=== PATIENT | female | born 1955 | race Caucasian/White ===

== ENCOUNTER 2019-03-17 15:54 | Inpatient (IN) ==
[2019-03-17] MEDS ORDERED: NS 1,000 ML IV ONE ×2 (16:09→17:10)
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
--- NOTE | 2019-03-17 16:21 | Diag Imaging Result Doc PS360 ---
EXAM: CHEST-1 VIEW 03/17/2019 HISTORY: chest pain TECHNIQUE: AP portable at 1611 COMMENT: There is no evidence of acute cardiac or pulmonary disease. IMPRESSION: No evidence of acute disease. Electronically signed by Cuate De Leon 03/17/2019 4:19 PM
[2019-03-17 17:07] LABS: ALLEN TEST NO; BE -22.1 mmoll (-3.0-3.0); BLOOD TYPE ARTERIAL; METHB 0.7 % (0.0-1.5); O2HB 97.2 % (95.0-99.0); PO2(98.6) 132 mmHg (60-100); SAMPLE BLOOD; SAO2 99.3 % (95.0-100.0)
[2019-03-17 17:09] LABS: PCO2(98.6) 9 mmHg (35-45); pH(98.6) 7.17 (7.35-7.45)
[2019-03-17 17:10] LABS: HCO3-(ACT) 7.7 mmoll (20.0-26.0); MODALITY ROOM AIR
[2019-03-17] MEDS ORDERED: HUMULIN R IV ONE (17:10)
[2019-03-17] MEDS ORDERED: HUMULIN R 100 UNIT in NS 100 ML IV SCH ×3 (17:15→23:45)
[2019-03-17 18:31] LABS: BASO# 0.03 X1000 (0.0-0.2); BASO% 0.2 % (0.0-0.8); HEMATOCRIT 46.6 % (37.0-47.0); HEMOGLOBIN 16.1 g/dL (12.0-16.0); IMM GRAN# 0.08 X1000 (0.0-0.04); IMM GRAN% 0.5 % (0.0-0.5); LYMPH# 2.04 X1000 (1.2-3.4); LYMPH% 13.4 % (20.5-51.1); MCHC 34.5 g/dL (33-37); MCV 86.8 FL (81-99); MONO# 0.58 X1000 (0.11-0.59); MONO% 3.8 % (1.7-9.3); MPV 9.5 FL (7.4-10.4); NEUT% 82.1 % (42.2-75.2); PLT 437 X1000 (130-400); RBC 5.37 XMIL (4.2-5.4); RDW 13.7 % (11.5-14.5); WBC 15.23 X1000 (4.8-10.8)
[2019-03-17 19:00] LABS: ESTIMATED GFR > 60
[2019-03-17 19:04] LABS: CHLORIDE 98 mmol/L (98-107); POTASSIUM 4.6 mmol/L (3.5-5.1); SODIUM 134 mmol/L (136-145); TCO2 6 mmol/L (25-35)
[2019-03-17 19:05] LABS: AGAP 30; ALB/GLOB RATIO 1.6; ALBUMIN 4.7 g/dL (3.5-5.0); ALKALINE PHOSPHATASE 117 U/L (32-104); BUN 28 mg/dL (8-22); COSMO 281; CREATININE 0.9 mg/dL (0.5-0.9); GLUCOSE 226 mg/dL (70-104); GOT 15 U/L (10-30); GPT 11 U/L (10-36); MAGNESIUM 2.2 mg/dL (1.5-2.7); PHOSPHORUS 4.6 mg/dL (2.7-4.5); TOTAL BILIRUBIN 0.45 mg/dL (0.20-1.00); TOTAL PROTEIN 7.7 g/dL (6.3-8.3)
[2019-03-17] MEDS ORDERED: D50W SYRINGE IV PRN ×2 (20:50→23:53)
[2019-03-17] MEDS ORDERED: ZOFRAN IV PRN (20:50)
--- NOTE | 2019-03-17 21:07 | HISTORY AND PHYSICAL ---
CHIEF COMPLAINT: Weakness, nausea, vomiting, and back pain. HISTORY OF PRESENT ILLNESS: Mrs. Garcia is a 64-year-old white female with long-standing type 2 diabetes mellitus, usually treated with metformin and Trulicity. She was in my office one week ago and her recent laboratory from late February documented a fasting blood sugar of 348. She had previously been prescribed Invokana but never filled it. Apparently, her insurance does not cover it. She did say that she got a few tablets from the pharmacy and took one yesterday. For several days she has not felt well. Yesterday she complained of shoulder and upper back pain. Today she complained of lower back pain and thigh pain. She vomited several times yesterday and today but denies abdominal pain. She is quite thirsty. She presented to my office early this afternoon and appeared very ashen and dehydrated. She was sent by EMS to the emergency room, arriving approximately 4:00. Apparently they were quite busy and the only laboratory available initially was a fingerstick blood sugar of 185 and a blood gas with pH of 7.17, pCO2 9, pO2 132, indicating metabolic acidosis. She has now received intravenous fluids and just recently had her intravenous insulin started. She states her vomitus has been just clear water like fluid without blood or coffee grounds. PAST MEDICAL HISTORY: Remarkable for type 2 diabetes mellitus, hypertension, and hypercholesterolemia. PAST SURGICAL HISTORY: She had an open cholecystectomy in 1987. In 2009 she had a radical hysterectomy for stage 1 cervical cancer which was followed by some radiation therapy. ALLERGIES: She has no known drug allergies. HOME MEDICATIONS: Crestor 20 mg at bedtime, B complex multivitamin one daily, Trulicity 0.75 mg once weekly, vitamin D3 2000 units daily, aspirin 81 mg daily, gabapentin 300 mg one to two at bedtime for neuropathy, irbesartan 150 mg daily, metformin 500 mg two tablets twice a day. REVIEW OF SYSTEMS: General: No fever, chills, night sweats or weight loss. HEENT: Vision and hearing are adequate without recent changes. Respiratory: She denies any cough or sputum production or chest congestion. She has felt air hunger for pretty much all of today. Cardiovascular: No history of angina or ischemic heart disease. No history of congestive heart failure or valvular heart disease. No recent palpitations, orthopnea, PND, or pedal edema. Gastrointestinal: Appetite has been diminished for several days due to nausea. She denies any diarrhea, melena, or constipation. Genitourinary: No dysuria, increased frequency of urination, or hematuria. Neurologic: Occasional burning pains in her feet at night. No history of strokes or seizures. Skin: No rash or itching. PHYSICAL EXAMINATION: VITAL SIGNS: Pending. See nurses' notes. GENERAL APPEARANCE: Pale ill appearing white female who is alert, cooperative, and talkative. HEENT: Pupils are equal, round, and reactive to light. Extraocular movements are intact. Oropharynx is benign with slightly dry mucous membranes. NECK: Supple with no adenopathy, JVD or bruits. LUNGS: Clear to auscultation bilaterally. CARDIAC: Regular rate and rhythm. No murmurs or gallops. ABDOMEN: Soft. Nontender with active bowel sounds. No masses are palpable. Multiple scars are apparent, particularly right upper quadrant, well healed cholecystectomy scar. GENERAL ORTHOPEDIC EXAM: Unremarkable. There is no edema. SKIN: Turgor is slightly reduced. There is no rash noted. DATABASE: Sodium 134, potassium 4.6, CO2 6, calcium 12, BUN 28, creatinine 0.9, glucose 226, magnesium 2.2, phosphorus 4.6. White blood count 15,000. Hemoglobin 16.1. Hematocrit 46.6%. Platelet count is 437,000. ASSESSMENT: 1. Diabetic ketoacidosis with relatively low glucose, possibly related to her one or two doses of Invokana. It certainly sounds like her symptoms began before she took the Invokana, however. 2. Leukocytosis, probably stress related due to metabolic stress of ketoacidosis. 3. Hypertension, currently well controlled. TREATMENT PLAN: She has been given intravenous normal saline and intravenous regular insulin and will follow fingerstick blood sugars hourly and basic metabolic profiles q four hours. Will watch her urine output and make sure EKG is okay before transferring to ICU. cc: Placido Link MD
[2019-03-17] MEDS: NEURONTIN PO SCH (22:13)
[2019-03-17] MEDS: CRESTOR PO SCH (22:13)
[2019-03-17] MEDS: D5 NS 1,000 ML IV SCH (22:13)
[2019-03-17 22:54] LABS: URINE SOURCE VOIDED
[2019-03-17 23:03] LABS: BILIRUBIN URINE NEGATIVE (NEGATIVE); BLOOD URINE NEGATIVE (NEGATIVE); COLOR YELLOW; GLUCOSE URINE >1000 mg/dL (NEGATIVE); KETONE URINE >150 mg/dL (NEGATIVE); LEUKOCYTES URINE NEGATIVE (NEGATIVE); NITRITE URINE NEGATIVE (NEGATIVE); PH URINE 5.5; PROTEIN URINE 50 mg/dL (NEGATIVE); SP GRAVITY URINE 1.025; TURBIDITY URINE CLEAR (CLEAR); UR EPITHELIAL CELLS <10 /HPF (<10); URINE BACTERIA NEGATIVE /HPF; URINE RBC <10 /HPF (<10); URINE WBC <10 /HPF (<10); UROBILINOGEN URINE NORMAL (NORMAL)
[2019-03-17 23:12] LABS: AGAP 19; ALB/GLOB RATIO 1.3; ALBUMIN 3.6 g/dL (3.5-5.0); ALKALINE PHOSPHATASE 91 U/L (32-104); BUN 24 mg/dL (8-22); CALCIUM 9.5 mg/dL (8.8-10.2); CHLORIDE 105 mmol/L (98-107); COSMO 270; CREATININE 0.8 mg/dL (0.5-0.9); ESTIMATED GFR > 60; GLUCOSE 155 mg/dL (70-104); GOT 11 U/L (10-30); GPT 8 U/L (10-36); POTASSIUM 3.9 mmol/L (3.5-5.1); SODIUM 131 mmol/L (136-145); TCO2 7 mmol/L (25-35); TOTAL BILIRUBIN 0.34 mg/dL (0.20-1.00); TOTAL PROTEIN 6.4 g/dL (6.3-8.3)
[2019-03-18] MEDS ORDERED: MAGNESIUM SULFATE 2 GM/S.W.I. 2 GM/50 ML IVPB IV ONE (00:07)
[2019-03-18] MEDS ORDERED: SODIUM PHOSPHATE 30 MMOL in NS 250 ML IV PRN (00:08)
[2019-03-18] MEDS ORDERED: POTASSIUM CHLORIDE 20% LIQUID PO PRN (00:21)
--- NOTE | 2019-03-18 00:35 | EKG Report ---
Test Performed on : 03/17/2019 7:03:19 PM Test Reason : chest pain Blood Pressure : / mmHG Vent. Rate : 097 BPM Atrial Rate : 107 BPM P-R Int : 000 ms QRS Dur : 086 ms QT Int : 370 ms P-R-T Axes : 000 013 -44 degrees QTc Int : 469 ms Undetermined rhythm Nonspecific ST and T wave abnormality Abnormal ECG No previous ECGs available Confirmed by Maurisio Marin MD ([id number]) on 03/18/2019 1:00:22 PM
[2019-03-18] MEDS ORDERED: MAGNESIUM SULFATE 2 GM/S.W.I. 2 GM/50 ML IVPB IV PRN (00:52)
[2019-03-18] MEDS: POTASSIUM CHLORIDE 10% LIQUID PO PRN ×2 (01:00→05:10)
[2019-03-18 01:29] LABS: ESTIMATED GFR > 60
[2019-03-18 01:32] LABS: AGAP 17; BUN 22 mg/dL (8-22); CALCIUM 9.1 mg/dL (8.8-10.2); CHLORIDE 108 mmol/L (98-107); COSMO 274; CREATININE 0.7 mg/dL (0.5-0.9); GLUCOSE 173 mg/dL (70-104); MAGNESIUM 1.7 mg/dL (1.5-2.7); PHOSPHORUS 1.9 mg/dL (2.7-4.5); SODIUM 133 mmol/L (136-145); TCO2 8 mmol/L (25-35)
[2019-03-18 04:56] LABS: ESTIMATED GFR > 60
[2019-03-18 05:01] LABS: AGAP 12; BUN 20 mg/dL (8-22); CALCIUM 8.8 mg/dL (8.8-10.2); CHLORIDE 111 mmol/L (98-107); COSMO 277; CREATININE 0.7 mg/dL (0.5-0.9); GLUCOSE 182 mg/dL (70-104); MAGNESIUM 1.8 mg/dL (1.5-2.7); PHOSPHORUS 1.4 mg/dL (2.7-4.5); POTASSIUM 4.2 mmol/L (3.5-5.1); SODIUM 135 mmol/L (136-145); TCO2 12 mmol/L (25-35)
[2019-03-18] MEDS: D5 NS 1,000 ML IV SCH ×3 (05:11→13:09)
[2019-03-18] MEDS ORDERED: SODIUM PHOSPHATE 40 MEQ in NS 250 ML IV SCH (07:00)
[2019-03-18] MEDS: ASPIRIN PO SCH (09:18)
[2019-03-18 10:46] LABS: BASO# 0.02 X1000 (0.0-0.2); BASO% 0.4 % (0.0-0.8); EOS# 0.06 X1000 (0.0-0.7); EOS% 1.1 % (0.0-10.0); HEMATOCRIT 38.2 % (37.0-47.0); HEMOGLOBIN 13.1 g/dL (12.0-16.0); IMM GRAN# 0.04 X1000 (0.0-0.04); IMM GRAN% 0.7 % (0.0-0.5); LYMPH# 1.81 X1000 (1.2-3.4); LYMPH% 32.7 % (20.5-51.1); MCH 31.3 PG (27-31); MCHC 34.3 g/dL (33-37); MCV 91.2 FL (81-99); MONO# 0.54 X1000 (0.11-0.59); MONO% 9.7 % (1.7-9.3); MPV 9.3 FL (7.4-10.4); NEUT# 3.07 X1000 (1.4-6.5); NEUT% 55.4 % (42.2-75.2); PLT 254 X1000 (130-400); RBC 4.19 XMIL (4.2-5.4); WBC 5.54 X1000 (4.8-10.8)
[2019-03-18 10:47] LABS: ESTIMATED GFR > 60
[2019-03-18 10:48] LABS: AGAP 12; BUN 16 mg/dL (8-22); CALCIUM 8.4 mg/dL (8.8-10.2); CHLORIDE 115 mmol/L (98-107); COSMO 279; CREATININE 0.7 mg/dL (0.5-0.9); GLUCOSE 176 mg/dL (70-104); SODIUM 137 mmol/L (136-145); TCO2 10 mmol/L (25-35)
[2019-03-18 16:37] LABS: AGAP 10; BUN 16 mg/dL (8-22); CHLORIDE 112 mmol/L (98-107); COSMO 277; CREATININE 0.6 mg/dL (0.5-0.9); ESTIMATED GFR > 60; GLUCOSE 143 mg/dL (70-104); MAGNESIUM 1.6 mg/dL (1.5-2.7); PHOSPHORUS 1.9 mg/dL (2.7-4.5); POTASSIUM 3.1 mmol/L (3.5-5.1); SODIUM 137 mmol/L (136-145); TCO2 15 mmol/L (25-35)
[2019-03-18] MEDS ORDERED: MAGNESIUM SULFATE IV ONE (17:15)
[2019-03-18] MEDS ORDERED: NS IV ONE (17:15)
[2019-03-18] MEDS ORDERED: POTASSIUM PHOSPHATE IV ONE (17:15)
[2019-03-18] MEDS ORDERED: TRESIBA FLEXTOUCH U-100 SUBQ ONE (17:23)
[2019-03-18] MEDS ORDERED: HUMULIN R 100 UNIT in NS 100 ML IV SCH (17:30)
[2019-03-18] MEDS: D5 1/2 NS + KCL 20 MEQ 1,000 ML IV SCH (18:01)
[2019-03-18] MEDS ORDERED: INSULIN PEN NEEDLES ONE (18:54)
[2019-03-18] MEDS: NEURONTIN PO SCH (20:10)
[2019-03-18] MEDS: CRESTOR PO SCH (20:10)
[2019-03-18] MEDS ORDERED: AMBIEN PO PRN (20:52)
[2019-03-18] MEDS ORDERED: HUMALOG SUBQ SCH (21:00)
[2019-03-18] MEDS: HUMALOG SUBQ SCH (22:07)
[2019-03-19] MEDS: HUMALOG SUBQ SCH ×4 (02:01→21:35)
[2019-03-19] MEDS: D5 1/2 NS + KCL 20 MEQ 1,000 ML IV SCH (02:21)
[2019-03-19 06:30] LABS: AGAP 7; BUN 11 mg/dL (8-22); CALCIUM 8.1 mg/dL (8.8-10.2); CHLORIDE 114 mmol/L (98-107); COSMO 278; CREATININE 0.5 mg/dL (0.5-0.9); ESTIMATED GFR > 60; GLUCOSE 158 mg/dL (70-104); POTASSIUM 3.6 mmol/L (3.5-5.1); SODIUM 138 mmol/L (136-145); TCO2 17 mmol/L (25-35)
[2019-03-19 06:37] LABS: MAGNESIUM 1.9 mg/dL (1.5-2.7); PHOSPHORUS 2.3 mg/dL (2.7-4.5)
[2019-03-19] MEDS: ASPIRIN PO SCH (08:49)
[2019-03-19] MEDS ORDERED: MAG-OX PO SCH (09:00)
[2019-03-19] MEDS ORDERED: KLOR-CON PO SCH (09:00)
[2019-03-19] MEDS ORDERED: D50W SYRINGE IV ONE (16:40)
[2019-03-19] MEDS ORDERED: TRESIBA FLEXTOUCH U-100 SUBQ SCH (21:00)
[2019-03-19] MEDS: TRESIBA FLEXTOUCH U-100 SUBQ SCH (21:52)
[2019-03-19] MEDS: GLUCOPHAGE XR PO SCH (21:53)
[2019-03-19] MEDS: CRESTOR PO SCH (21:53)
[2019-03-19] MEDS: NEURONTIN PO SCH (21:53)
[2019-03-20] MEDS: HUMALOG SUBQ SCH ×4 (05:59→21:46)
[2019-03-20 07:21] LABS: AGAP 8; BUN 9 mg/dL (8-22); CALCIUM 8.4 mg/dL (8.8-10.2); CHLORIDE 113 mmol/L (98-107); COSMO 282; CREATININE 0.4 mg/dL (0.5-0.9); ESTIMATED GFR > 60; GLUCOSE 95 mg/dL (70-104); POTASSIUM 3.5 mmol/L (3.5-5.1); SODIUM 142 mmol/L (136-145); TCO2 21 mmol/L (25-35)
[2019-03-20] MEDS ORDERED: NON-FORMULARY BULK MED MISC PRN (09:31)
[2019-03-20 13:54] LABS: URINE SOURCE CLEAN CATCH
[2019-03-20 13:56] LABS: BILIRUBIN URINE NEGATIVE (NEGATIVE); BLOOD URINE NEGATIVE (NEGATIVE); CLARITY CLEAR (CLEAR); COLOR YELLOW; GLUCOSE URINE >=1000 mg/dL (NEGATIVE); KETONE URINE 15 mg/dL (NEGATIVE); LEUKOCYTES URINE NEGATIVE (NEGATIVE); NITRITE URINE NEGATIVE (NEGATIVE); PROTEIN URINE NEGATIVE (NEGATIVE); SP GRAVITY URINE 1.015; UROBILINOGEN URINE 0.2 EU/dL (0.2-1.0)
[2019-03-20] MEDS: GLUCOPHAGE XR PO SCH (21:45)
[2019-03-20] MEDS: TRESIBA FLEXTOUCH U-100 SUBQ SCH (21:45)
[2019-03-20] MEDS: CRESTOR PO SCH (21:45)
[2019-03-20] MEDS: NEURONTIN PO SCH (21:45)
[2019-03-21] MEDS: HUMALOG SUBQ SCH (06:29)
[2019-03-21 07:27] VITALS: BP 123/73
[2019-03-21 07:28] LABS: AGAP 9; BUN 8 mg/dL (8-22); CALCIUM 8.9 mg/dL (8.8-10.2); CHLORIDE 106 mmol/L (98-107); COSMO 271; CREATININE 0.5 mg/dL (0.5-0.9); ESTIMATED GFR > 60; GLUCOSE 74 mg/dL (70-104); POTASSIUM 3.3 mmol/L (3.5-5.1); SODIUM 137 mmol/L (136-145); TCO2 22 mmol/L (25-35)
--- NOTE | 2019-03-21 09:28 | DISCHARGE SUMMARY ---
ADMISSION DATE: 03/17/2019 DISCHARGE DATE: 03/21/2019 FINAL DIAGNOSES: 1. Diabetic ketoacidosis. 2. Type 1 diabetes mellitus. 3. History of hypertension. 4. History of diabetic neuropathy. HISTORY OF PRESENT ILLNESS: Ms. Garcia is a 64-year-old white female with a history of longstanding type 2 diabetes mellitus for which she took metformin and Trulicity at home. She had been seen in my office a week prior to admission when her blood sugar was poorly controlled, and we had a long talk about her motivation and need to work on her diet and medications. She was prescribed Invokana, but it took almost a week to get her prior approval arranged. She took one dose the day before admission but said she was already nauseated and vomited it up, and she does not believe it was absorbed. She walked in my office with her family, very weak in condition and complaining of severe shortness of breath. She was in, I suspected ketoacidosis, and had her brought to the emergency room by ambulance from my office. Physical exam revealed a pale, ill- appearing white female who was alert, cooperative. Mucous membranes were slightly dry. Neck was supple with no adenopathy or JVD. Lungs were clear. Cardiac exam with regular rate and rhythm, no murmurs or gallops. DATABASE: CO2 was 6, calcium 12.0, BUN was 28, creatinine 0.9, glucose 226. White blood count 15,000, hemoglobin 16.1 g. Please see dictated history and physical for further details. HOSPITAL COURSE: She was begun on intravenous normal saline and intravenous regular insulin in the emergency room. She was admitted to ICU when a bed was available. Due to her modest elevations of blood sugar, she was started on 2 units of regular insulin per hour. When her blood sugar was less than 160, she was changed to intravenous D5 normal saline and continued to improve. With intravenous fluids and insulin, her acidosis improved steadily. At the time of discharge, her CO2 was 22. Her sense of well being returned, and her back, flank, and shoulder pains resolved. Her shortness of breath resolved completely. Her oxygen saturation remained normal on room air, and chest x-ray was unremarkable. I feel the feeling of dyspnea and air hunger on admission was due to the Kussmaul respirations, and her room air blood gas on admission had a very low pCO2 of 9 indicated marked respiratory compensation for her metabolic acidosis. Her anion gap is now normal. She was seen by escort car driver and instructed in a Mediterranean diet with 15 g of carbohydrate per meal. I carefully instructed her that she now requires daily insulin, and she did well on Tresiba once daily. She required almost no corrective regular insulin, and her blood sugar this morning was 74, and I have decreased her Tresiba dose from 20 units daily to 16. She will return to my office this coming for followup. She has been instructed on how to use Keto Sticks to monitor her urine ketones and to call my office if they are moderate or more. DISCHARGE MEDICATIONS: Gabapentin 300 mg nightly at bedtime, Tresiba 16 units subcutaneously at bedtime, metformin XR 500 mg nightly at bedtime, rosuvastatin 20 mg nightly at bedtime. She is instructed to not take her Invokana and Trulicity at home. cc: Placido Link MD
[2019-03-21] MEDS ORDERED: TRESIBA FLEXTOUCH U-100 SUBQ SCH (21:00)
== END 2019-03-21 09:52 | disposition home or self-care (01) | DRG 639 ==
LOC: SUPCPDRO → ED 15:54 → ICU 18:51 → 3N 03-19 11:40
PROVIDERS: ADMIT Internal Medicine; ATTEND Internal Medicine